=== PATIENT | female | born 1970 | race Caucasian/White ===

== ENCOUNTER 2020-02-10 12:49 | Emergency (ER) | payer BC ==
[~2020-02-10] VITALS: Ht 152.4 cm; Wt 46.8 kg
[2020-02-10 13:03] VITALS: BP 105/71
[2020-02-10] MEDS ORDERED: BENZ-16 PO (13:26)
--- NOTE | 2020-02-11 17:00 | NUR ---
LAB CALLED; PT'S COVID-19 SWAB, SENT TO [facility], CAME BACK POSITIVE. TONG ZHENG AWARE PER LAB.
== END 2020-02-10 13:41 | disposition home or self-care (01) ==
LOC: ER 12:50
DX: Z03.818 Encounter for observation for suspected exposure to other biological agents ruled out (principal); R05 Cough; M79.18 Myalgia, other site; Z88.1 Allergy status to other antibiotic agents; Z79.899 Other long term (current) drug therapy
CPT/HCPCS: 36415; 99283; C9803

== ENCOUNTER 2020-09-06 09:16 | Outpatient (CLI) | payer BC ==
[2020-09-06 10:25] LABS: BASOPHILS # (AUTO) 0.1 X10'3 (0-0.2); BASOPHILS % (AUTO) 1.2 % (0-1); EOSINOPHILS # (AUTO) 0.1 X10'3 (0-0.9); EOSINOPHILS % (AUTO) 2.8 % (0-6); HEMATOCRIT 41.4 % (35.0-45.0); HEMOGLOBIN 13.9 g/dl (12.0-16.0); LYMPHOCYTES % (AUTO) 23.5 % (21-51); MEAN CORPUSCULAR HEMOGLOBIN 30.8 PG (27.0-31.0); MEAN CORPUSCULAR HGB CONC 33.7 g/dL (33.0-36.5); MEAN CORPUSCULAR VOLUME 91.4 FL (78-98); MEAN PLATELET VOLUME 7.1 FL (7.4-10.4); MONOCYTES # (AUTO) 0.5 X10'3 (0-0.9); MONOCYTES % (AUTO) 10.5 % (2-12); NEUTROPHILS # (AUTO) 2.7 X10'3 (1.8-7.7); PLATELET COUNT 297 X10'3 (140-440); RED BLOOD COUNT 4.53 X10'6 (4.20-5.60); RED CELL DISTRIBUTION WIDTH 13.8 % (11.5-14.5); WHITE BLOOD COUNT 4.3 X10'3 (4.5-11.0)
[2020-09-06 10:56] LABS: ALANINE AMINOTRANSFERASE 31 U/L (12-78); ALBUMIN 4.3 G/DL (3.4-5.0); ALBUMIN/GLOBULIN RATIO 1.1 (1.1-1.5); ALKALINE PHOSPHATASE 96 IU/L (46-116); ANION GAP 5 (8-16); ASPARTATE AMINO TRANSFERASE 30 U/L (10-37); BILIRUBIN,TOTAL 0.8 MG/DL (0.1-1.0); BLOOD UREA NITROGEN 16 MG/DL (7-18); BUN/CREATININE RATIO 16.3 (6.6-38.0); CALCIUM 9.4 MG/DL (8.5-10.1); CHLORIDE 94 MMOL/L (99-107); CHOLESTEROL 245 MG/DL (0-200); CREATININE 0.98 MG/DL (0.40-0.90); GLUCOSE 92 MG/DL (70-104); HDL CHOLESTEROL 81 MG/DL (35-60); LDL CHOLESTEROL 148 MG/DL (50-100); SODIUM 139 MMOL/L (135-145); TOTAL CARBON DIOXIDE 39.6 MMOL/L (24-32); TOTAL PROTEIN 8.2 G/DL (6.4-8.2); TRIGLYCERIDES 84 MG/DL (20-135); eGFR 60 ML/MIN
[2020-09-06 10:58] LABS: POTASSIUM 2.2 MMOL/L (3.5-5.1)
== END 2020-09-06 23:59 | disposition home or self-care (01) ==
LOC: LAB 09:16
PROVIDERS: ATTEND Family Medicine
DX: Z00.01 Encounter for general adult medical examination with abnormal findings (principal); E78.00 Pure hypercholesterolemia, unspecified; I10 Essential (primary) hypertension; E03.9 Hypothyroidism, unspecified; R68.89 Other general symptoms and signs; K90.49 Malabsorption due to intolerance, not elsewhere classified; R79.89 Other specified abnormal findings of blood chemistry
CPT/HCPCS: 36415; 80053; 80061; 82306; 84443; 85025

== ENCOUNTER 2020-11-09 12:16 | Outpatient (CLI) | payer BC ==
[2020-11-09 13:04] LABS: BASOPHILS # (AUTO) 0.1 X10'3 (0-0.2); BASOPHILS % (AUTO) 1.5 % (0-1); EOSINOPHILS # (AUTO) 0.1 X10'3 (0-0.9); EOSINOPHILS % (AUTO) 2.5 % (0-6); HEMATOCRIT 38.4 % (35.0-45.0); HEMOGLOBIN 12.7 g/dl (12.0-16.0); LYMPHOCYTES % (AUTO) 27.1 % (21-51); MEAN CORPUSCULAR HEMOGLOBIN 30.4 PG (27.0-31.0); MEAN CORPUSCULAR HGB CONC 33.1 g/dL (33.0-36.5); MEAN CORPUSCULAR VOLUME 91.8 FL (78-98); MONOCYTES # (AUTO) 0.3 X10'3 (0-0.9); MONOCYTES % (AUTO) 8.6 % (2-12); NEUTROPHILS # (AUTO) 2.1 X10'3 (1.8-7.7); NEUTROPHILS % (AUTO) 60.3 % (42-75); PLATELET COUNT 308 X10'3 (140-440); RED BLOOD COUNT 4.18 X10'6 (4.20-5.60); RED CELL DISTRIBUTION WIDTH 13.7 % (11.5-14.5); WHITE BLOOD COUNT 3.5 X10'3 (4.5-11.0)
[2020-11-09 13:13] LABS: ALANINE AMINOTRANSFERASE 35 U/L (12-78); ALBUMIN/GLOBULIN RATIO 1.1 (1.1-1.5); ALKALINE PHOSPHATASE 83 IU/L (46-116); ANION GAP 9 (8-16); ASPARTATE AMINO TRANSFERASE 36 U/L (10-37); BILIRUBIN,TOTAL 0.4 MG/DL (0.1-1.0); BLOOD UREA NITROGEN 9 MG/DL (7-18); BUN/CREATININE RATIO 9.6 (6.6-38.0); CALCIUM 9.2 MG/DL (8.5-10.1); CHLORIDE 95 MMOL/L (99-107); CREATININE 0.94 MG/DL (0.40-0.90); GLUCOSE 104 MG/DL (70-104); POTASSIUM 3.6 MMOL/L (3.5-5.1); SODIUM 139 MMOL/L (135-145); TOTAL CARBON DIOXIDE 35.5 MMOL/L (24-32); TOTAL PROTEIN 7.7 G/DL (6.4-8.2); eGFR 63 ML/MIN
== END 2020-11-09 23:59 | disposition home or self-care (01) ==
LOC: LAB 12:16
PROVIDERS: ATTEND Physician Assistant Surgical
DX: E87.6 Hypokalemia (principal)
CPT/HCPCS: 36415; 80053; 85025

== ENCOUNTER 2021-06-26 15:30 | Emergency (ER) | payer BC ==
[~2021-06-26] VITALS: Ht 165.1 cm; Wt 47.7 kg
[2021-06-26] MEDS ORDERED: magnesium 2GM in 50ml NS 50 ML IV ONE (15:40)
[2021-06-26] MEDS ORDERED: potassium Cl 10 mEq/100mL bag IV ONE ×2 (15:40→16:25)
[2021-06-26] MEDS ORDERED: potassium Cl 20 mEq SR tablet PO ONE (15:40)
[2021-06-26] MEDS ORDERED: normal saline 1000ML IV soln IVB ONE (15:40)
[2021-06-26] MEDS ORDERED: ondansetron/PF 4mg/2ml inj IV ONE (15:40)
[2021-06-26] MEDS ORDERED: famotidine/PF 10 mg/ml inj IV ONE (15:45)
[2021-06-26 16:01] LABS: BASOPHILS % (AUTO) 0.7 % (0-1); EOSINOPHILS # (AUTO) 0.1 X10'3 (0-0.9); EOSINOPHILS % (AUTO) 1.1 % (0-6); HEMATOCRIT 37.7 % (35.0-45.0); HEMOGLOBIN 13.5 g/dl (12.0-16.0); LYMPHOCYTES # (AUTO) 2.1 X10'3 (1.1-4.8); LYMPHOCYTES % (AUTO) 36.6 % (21-51); MEAN CORPUSCULAR HEMOGLOBIN 32.1 PG (27.0-31.0); MEAN CORPUSCULAR HGB CONC 35.8 g/dL (33.0-36.5); MEAN CORPUSCULAR VOLUME 89.7 FL (78-98); MEAN PLATELET VOLUME 7.2 FL (7.4-10.4); MONOCYTES # (AUTO) 0.5 X10'3 (0-0.9); MONOCYTES % (AUTO) 9.2 % (2-12); NEUTROPHILS % (AUTO) 52.4 % (42-75); PLATELET COUNT 328 X10'3 (140-440); RED BLOOD COUNT 4.21 X10'6 (4.20-5.60); RED CELL DISTRIBUTION WIDTH 12.9 % (11.5-14.5); WHITE BLOOD COUNT 5.7 X10'3 (4.5-11.0)
[2021-06-26 16:05] LABS: ALANINE AMINOTRANSFERASE 41 U/L (12-78); ALBUMIN 4.1 G/DL (3.4-5.0); ALBUMIN/GLOBULIN RATIO 1.1 (1.1-1.5); ALKALINE PHOSPHATASE 96 IU/L (46-116); ANION GAP 18 (8-16); ASPARTATE AMINO TRANSFERASE 35 U/L (10-37); BILIRUBIN,TOTAL 0.3 MG/DL (0.1-1.0); BLOOD UREA NITROGEN 11 MG/DL (7-18); BUN/CREATININE RATIO 9.1 (6.6-38.0); CHLORIDE 87 MMOL/L (99-107); CREATININE 1.21 MG/DL (0.40-0.90); GLUCOSE 182 MG/DL (70-104); SODIUM 133 MMOL/L (135-145); TOTAL CARBON DIOXIDE 27.7 MMOL/L (24-32); TOTAL PROTEIN 7.8 G/DL (6.4-8.2); eGFR 47 ML/MIN
[2021-06-26 16:27] VITALS: BP 113/63
[2021-06-26] MEDS ORDERED: ONDA4TAB6 PO (17:15)
== END 2021-06-26 19:13 | disposition home or self-care (01) ==
LOC: ER 15:30
DX: E86.0 Dehydration (principal); R11.2 Nausea with vomiting, unspecified; E87.6 Hypokalemia; R19.7 Diarrhea, unspecified; Z88.1 Allergy status to other antibiotic agents; Z88.8 Allergy status to other drugs, medicaments and biological substances; Z79.899 Other long term (current) drug therapy
CPT/HCPCS: 36415; 80053; 85025; 93005; 96361; 96365; 96366; 96368; 96375; 99284; J2405; J3475; J3480; J3490; J7030

== ENCOUNTER 2021-08-01 05:42 | Day surgery (SDC) | payer BC ==
[2021-07-30 10:35] LABS: CLARITY,URINE CLOUDY (Clear); COLOR,URINE YELLOW (Yellow); GLUCOSE, URINE NEGATIVE (Neg); KETONES,URINE 15 mg/dl (Neg); LEUKOCYTE ESTERASE ,URINE NEGATIVE (Neg); NITRITES, URINE NEGATIVE (Neg); OCCULT BLOOD,URINE NEGATIVE (Neg); PH,URINE 8.5 (4.8-8.0); PROTEIN,URINE TRACE mg/dl (Neg); UROBILINOGEN,URINE 0.2 E.U/dL (0.2-1.0)
[2021-07-30 10:37] LABS: UA COLLECTION TYPE CLN CATCH MIDSTREAM
[2021-07-30 10:43] LABS: BASOPHILS # (AUTO) 0.1 X10'3 (0-0.2); BASOPHILS % (AUTO) 1.2 % (0-1); EOSINOPHILS # (AUTO) 0.1 X10'3 (0-0.9); EOSINOPHILS % (AUTO) 2.5 % (0-6); LYMPHOCYTES # (AUTO) 1.1 X10'3 (1.1-4.8); LYMPHOCYTES % (AUTO) 23.8 % (21-51); MEAN CORPUSCULAR HEMOGLOBIN 32.5 PG (27.0-31.0); MEAN CORPUSCULAR HGB CONC 35.7 g/dL (33.0-36.5); MEAN CORPUSCULAR VOLUME 90.9 FL (78-98); MEAN PLATELET VOLUME 7.5 FL (7.4-10.4); MONOCYTES # (AUTO) 0.3 X10'3 (0-0.9); MONOCYTES % (AUTO) 7.2 % (2-12); NEUTROPHILS # (AUTO) 2.9 X10'3 (1.8-7.7); NEUTROPHILS % (AUTO) 65.3 % (42-75); PRE OP HEMATOCRIT 38.2 % (35.0-45.0); PRE OP HEMOGLOBIN 13.7 g/dL (12.0-16.0); PRE OP PLATELET COUNT 321 X10'3 (140-440); RED BLOOD COUNT 4.21 X10'6 (4.20-5.60); RED CELL DISTRIBUTION WIDTH 13.3 % (11.5-14.5)
[2021-07-30 10:44] LABS: AMORPHOUS PHOSPHATES 3+; HYALINE CASTS 0-3 /LPF (NEGATIVE); MUCUS STRANDS MODERATE /LPF (Neg)
[2021-07-30 10:45] LABS: BACTERIA,URINE FEW /HPF (Neg); RBC,URINE NONE SEEN /HPF (0-2); SQUAMOUS EPITHELIAL CELL,UR FEW /LPF (FEW); WBC,URINE 0-4 /HPF (0-4)
[2021-07-30 10:59] LABS: ALBUMIN/GLOBULIN RATIO 1.1 (1.1-1.5); ALKALINE PHOSPHATASE 102 IU/L (46-116); BLOOD UREA NITROGEN 17 MG/DL (7-18); BUN/CREATININE RATIO 14.4 (6.6-38.0); CALCIUM 9.5 MG/DL (8.5-10.1); CHLORIDE 100 MMOL/L (99-107); CREATININE 1.18 MG/DL (0.40-0.90); PRE OP ALT 32 U/L (30-65); PRE OP ANION GAP 7 (8-16); PRE OP AST 31 U/L (10-37); PRE OP BILIRUB, TOTAL 0.6 MG/DL (0.0-1.0); PRE OP GLUCOSE 107 MG/DL (70-104); PRE OP POTASSIUM 3.5 MMOL/L (3.4-5.1); PRE OP SODIUM 139 MMOL/L (135-145); TOTAL CARBON DIOXIDE 32.3 MMOL/L (24-32); TOTAL PROTEIN 7.8 G/DL (6.4-8.2); eGFR 48 ML/MIN
[2021-08-01] VITALS (20 sets, daily range): BP systolic 90–118; BP diastolic 43–75
[~2021-08-01] VITALS: Ht 152.4 cm; Wt 51.8 kg
[~2021-08-01 05:42] MED LIST: CELE-193 PO; IBUP-1984 PO; LIDOcaine 1% (10mg/ml) 2ml vial ONE; MAGN100T6 PO; PROG100C11 PO; [UNRECOGNIZED DRUG - OTHER] INJ; cefazolin/dext.iso 2gm/50ml IV ONE; famotidine 20mg tablet PO ONE; scopolamine 1mg/72 hr patch TD SCH
[2021-08-01] MEDS: ringers solution, lacted 1,000 ML IV SCH ×2 (06:05→09:19)
[2021-08-01] MEDS ORDERED: BUPIVAcaine/PF 2.5 mg/ml (0.25%) 30ml vial ONE (07:04)
[2021-08-01] MEDS ORDERED: sevoflurane 250ml liquid IH ONE (07:25)
[2021-08-01] MEDS ORDERED: acetaminophen 1000 MG/100ml vial IV ONE (07:25)
[2021-08-01] MEDS ORDERED: aprepitant 40mg capsule PO ONE (07:27)
[2021-08-01] MEDS ORDERED: fentaNYL/PF 50MCG/1 ML 2ML syringe ONE ×2 (07:36→08:56)
[2021-08-01] MEDS ORDERED: midazolam 1 mg/ML 2ml injection ONE (07:37)
[2021-08-01] MEDS ORDERED: propofol inj 20 ML IV ONE (07:38)
[2021-08-01] MEDS ORDERED: LIDOcaine 2% (20mg/ml) 5ml vial ONE (07:38)
[2021-08-01] MEDS ORDERED: ondansetron/PF 4mg/2ml inj ONE ×2 (07:48→08:29)
[2021-08-01] MEDS ORDERED: rocuronium 10mg/ml inj IV ONE (07:48)
[2021-08-01] MEDS ORDERED: dexamethasone sod phosphate 4mg/ml inj. ONE (07:48)
[2021-08-01] MEDS ORDERED: ringers solution, lacted 1,000 ML IV SCH (08:10)
[2021-08-01] MEDS ORDERED: proCHLORperazine 10 MG/2 ml inj IV PRN (08:10)
[2021-08-01] MEDS ORDERED: meperidine/PF 25mg/ml syringe IV PRN ×3 (08:10)
[2021-08-01] MEDS ORDERED: morphine 4 MG/ML inj SYRINge IV PRN (08:10)
[2021-08-01] MEDS ORDERED: ondansetron/PF 4mg/2ml inj IV PRN (08:10)
[2021-08-01] MEDS ORDERED: morphine 2 MG/ML inj. syringe IV PRN (08:10)
[2021-08-01] MEDS ORDERED: ketorolac trometh. 30mg/ml inj. ONE (08:49)
--- NOTE | 2021-08-01 08:53 | NUR ---
Received from OR via [facility], accompanied by Anesthesiologist VICKI and report given by Anesthesiolgist. PT. ARRIVED WITH O2 AT 10 L. MASK. VSS. PAIN PRESENT. MEDICATED PER VICKI WITH SOME RESULT. 3 INCISIONN SITES UPPER, LEFT AND LOWER ABD. LARGE BANDAIDS CDI. LR INFUSING IN L. WRIST 20 G. AT 100 ML/HR, CDI. . EXTREMITIES WARM, PULSES PALPABLE, INTACT SENSATIONS. PT. REPOSITIONED FOR COMFORT. SCOPE PATCH IN PLACE L. EAR. Addendum: 08/01/21 at 0917 by Arlette Kamara RN Amended: Links added.
[2021-08-01] MEDS ORDERED: fentaNYL/PF 50MCG/1 ML 2ML syringe IV ONE ×2 (09:35→10:00)
[2021-08-01] MEDS ORDERED: HYDROcodone/acetaminophen 10/325mg tab PO ONE (10:00)
--- NOTE | 2021-08-01 12:13 | NUR ---
ALL DC CRITERIA MET. PT. DC TO PRIVATE VEHICLE VIA WC. PT. ABLE TO TOLERATE FLUIDS AND CRACKERS. PRN PAIN MED GIVEN PRIOR TO DC. VSS. PAIN MANAGEABLE. ANGELA HUGHES CALLED TO PT. PHARMACY PER VICKI. PT. ABLE TO ASSIST WITH DRESSING AND AMBULATE. IV DC. DRESSINGS ON ABDOMEN CDI. LEFT WITH ALL BELONGINGS. Addendum: 08/01/21 at 1247 by Arlette Kamara RN Amended: Links added.
== END 2021-08-01 12:13 | disposition home or self-care (01) ==
LOC: PAS 05:42
PROVIDERS: ATTEND Surgery
DX: K43.2 Incisional hernia without obstruction or gangrene (principal); Z20.822 Contact with and (suspected) exposure to COVID-19; Z90.49 Acquired absence of other specified parts of digestive tract; Z98.51 Tubal ligation status; Z98.890 Other specified postprocedural states; Z72.89 Other problems related to lifestyle; Z88.8 Allergy status to other drugs, medicaments and biological substances; Z88.1 Allergy status to other antibiotic agents; Z79.899 Other long term (current) drug therapy
CPT/HCPCS: 36415; 49654; 80053; 81001; 85025; 87635; 93005; C1713; C1781; C9803; J0690; J1100; J1885; J2250; J2405; J2704; J3010; J3490; J7030; J7120; J8501; Z7506; Z7508; Z7512; A4215; A4618; A7000; J0131

== ENCOUNTER 2023-06-10 08:39 | Inpatient (IN) | payer BC, OTHER ==
[~2023-06-10] VITALS: Ht 152.4 cm; Wt 42.0 kg
[~2023-06-10 08:39] MED LIST changes: -LIDOcaine 1% (10mg/ml) 2ml vial ONE; -cefazolin/dext.iso 2gm/50ml IV ONE; -famotidine 20mg tablet PO ONE; -scopolamine 1mg/72 hr patch TD SCH
[2023-06-10] MEDS ORDERED: ondansetron/PF 4mg/2ml inj IV ONE (08:50)
[2023-06-10] MEDS ORDERED: morphine 2 MG/ML inj. syringe IV ONE (08:50)
[2023-06-10] MEDS ORDERED: iohexol 300mg/ml 100ml inj. ONE (08:55)
--- NOTE | 2023-06-10 09:26 | NUR ---
Pt came to ER from short stay with left forearm IV already initiated. IV patent.
[2023-06-10 10:01] LABS: BASOPHILS % (AUTO) 0.7 % (0-1); EOSINOPHILS # (AUTO) 0.1 X10'3 (0-0.9); EOSINOPHILS % (AUTO) 1.3 % (0-6); HEMATOCRIT 40.8 % (35.0-45.0); LYMPHOCYTES # (AUTO) 1.5 X10'3 (1.1-4.8); LYMPHOCYTES % (AUTO) 31.6 % (21-51); MEAN CORPUSCULAR HEMOGLOBIN 31.8 PG (27.0-31.0); MEAN CORPUSCULAR HGB CONC 34.3 g/dL (33.0-36.5); MEAN CORPUSCULAR VOLUME 92.6 FL (78-98); MEAN PLATELET VOLUME 7.9 FL (7.4-10.4); MONOCYTES # (AUTO) 0.5 X10'3 (0-0.9); MONOCYTES % (AUTO) 11.3 % (2-12); NEUTROPHILS # (AUTO) 2.7 X10'3 (1.8-7.7); NEUTROPHILS % (AUTO) 55.1 % (42-75); PLATELET COUNT 254 X10'3 (140-440); WHITE BLOOD COUNT 4.8 X10'3 (4.5-11.0)
[2023-06-10 10:14] LABS: ALANINE AMINOTRANSFERASE 26 U/L (12-78); ALBUMIN 4.1 G/DL (3.4-5.0); ALBUMIN/GLOBULIN RATIO 1.3 (1.1-1.5); ALKALINE PHOSPHATASE 63 IU/L (46-116); ANION GAP 7 (8-16); ASPARTATE AMINO TRANSFERASE 41 U/L (10-37); BILIRUBIN,TOTAL 0.7 MG/DL (0.1-1.0); BLOOD UREA NITROGEN 14 MG/DL (7-18); BUN/CREATININE RATIO 14.9 (10.0-20.0); CALCIUM 9.2 MG/DL (8.5-10.1); CHLORIDE 92 MMOL/L (99-107); CREATINE KINASE 199 U/L (26-192); CREATININE 0.94 MG/DL (0.40-0.90); GLUCOSE 106 MG/DL (70-104); LIPASE 32 U/L (16-77); PRO BRAIN NATRIURETIC PEPTIDE < 30 PG/ML (0-125); SODIUM 136 MMOL/L (135-145); TOTAL CARBON DIOXIDE 37.1 MMOL/L (24-32); TOTAL PROTEIN 7.2 G/DL (6.4-8.2); eCRCL 48 ML/MIN; eGFR 63 ML/MIN
[2023-06-10] MEDS ORDERED: ringers solution, lacted 1,000 ML IV ONE (10:20)
[2023-06-10] MEDS ORDERED: magnesium citrate 296ml oral solution PO ONE ×2 (10:20→10:35)
[2023-06-10] MEDS ORDERED: HYDROcodone/acetaminophen 5mg/325mg tablet PO PRN (10:35)
[2023-06-10] MEDS ORDERED: mag hydrox/Alum hydrox/simeth 30ml oral suspension PO PRN (10:35)
[2023-06-10] MEDS ORDERED: magnesium 4gm in 100ml NS 100 ML IV PRN (10:35)
[2023-06-10] MEDS ORDERED: magnesium 2GM in 50ml NS 50 ML IV PRN (10:35)
[2023-06-10] MEDS ORDERED: potassium Cl 20 mEq SR tablet PO PRN ×2 (10:35)
[2023-06-10] MEDS ORDERED: acetaminophen 325mg tablet PO PRN (10:35)
[2023-06-10] MEDS ORDERED: HYDROcodone/acetaminophen 10/325mg tab PO PRN (10:35)
[2023-06-10] MEDS ORDERED: potassium Cl 40MEQ/1/2NS 520ml 520 ML IV PRN (10:35)
[2023-06-10] MEDS ORDERED: ondansetron/PF 4mg/2ml inj IV PRN (10:35)
[2023-06-10] MEDS ORDERED: magnesium hydroxide 30ml (MOM) UD suspension PO PRN (10:35)
[2023-06-10] MEDS ORDERED: magnesium Cl slow-release 64mg tablet PO PRN (10:35)
[2023-06-10] MEDS: POTASSIUM BICARB 20meq eff tab 20 MEQ TABLET.EFF PO SCH ×7 (10:45→23:00)
[2023-06-10] MEDS: potassium Cl 20mEq in NS 1,000 ML IV SCH ×2 (11:24→20:35)
[2023-06-10 12:49] LABS: BILIRUBIN,URINE NEGATIVE (Neg); CLARITY,URINE SLIGHTLY CLOUDY (Clear); COLOR,URINE STRAW (Yellow); GLUCOSE, URINE NEGATIVE (Neg); KETONES,URINE NEGATIVE (Neg); LEUKOCYTE ESTERASE ,URINE NEGATIVE (Neg); NITRITES, URINE NEGATIVE (Neg); OCCULT BLOOD,URINE NEGATIVE (Neg); PH,URINE 8.5 (4.8-8.0); PROTEIN,URINE NEGATIVE (Neg); UROBILINOGEN,URINE 0.2 E.U/dL (0.2-1.0)
[2023-06-10 12:56] LABS: SQUAMOUS EPITHELIAL CELL,UR MANY /LPF (FEW); UA COLLECTION TYPE CLN CATCH MIDSTREAM
[2023-06-10 12:57] LABS: BACTERIA,URINE 2+ /HPF (Neg); RBC,URINE 0-2 /HPF (0-2); WBC,URINE 0-4 /HPF (0-4)
[2023-06-10 13:00] VITALS: BP 112/62; PULSE 59; RESP 16; O2SAT 99
[2023-06-10 13:28] LABS: MAGNESIUM 1.9 MG/DL (1.5-2.4)
[2023-06-10 13:42] LABS: POTASSIUM 2.1 MMOL/L (3.5-5.1)
[2023-06-10 18:00] VITALS: BP 105/65; PULSE 59; RESP 16; TEMP 97.8; O2SAT 100
[2023-06-10] MEDS ORDERED: NO HOME MEDS (19:00)
[2023-06-10] MEDS: docusate sod 100mg capsule PO SCH ×2 (19:53→20:00)
[2023-06-10] MEDS ORDERED: K and/or MAG REPLACEMENT MC SCH (20:00)
[2023-06-10] MEDS ORDERED: enoxaparin 40mg/0.4ml syringe SQ SCH (20:00)
[2023-06-10 22:00] VITALS: BP 93/49; PULSE 72; RESP 16; TEMP 98.4; O2SAT 98
[2023-06-11] MEDS: POTASSIUM BICARB 20meq eff tab 20 MEQ TABLET.EFF PO SCH ×5 (00:26→09:02)
--- NOTE | 2023-06-11 05:28 | NUR ---
SHOE LACER documentation: I have reviewed and agree with all interventions, assessments performed and documented by Meet.
[2023-06-11 06:00] VITALS: BP 96/61; PULSE 57; RESP 16; TEMP 97.9; O2SAT 98
--- NOTE | 2023-06-11 06:19 | NUR ---
Report to Sharri GUARDADO
[2023-06-11 06:56] LABS: BASOPHILS % (AUTO) 0.8 % (0-1); EOSINOPHILS # (AUTO) 0.1 X10'3 (0-0.9); EOSINOPHILS % (AUTO) 1.2 % (0-6); HEMATOCRIT 36.9 % (35.0-45.0); HEMOGLOBIN 12.7 g/dl (12.0-16.0); LYMPHOCYTES # (AUTO) 1.4 X10'3 (1.1-4.8); LYMPHOCYTES % (AUTO) 24.2 % (21-51); MEAN CORPUSCULAR HEMOGLOBIN 32.1 PG (27.0-31.0); MEAN CORPUSCULAR HGB CONC 34.3 g/dL (33.0-36.5); MEAN CORPUSCULAR VOLUME 93.5 FL (78-98); MEAN PLATELET VOLUME 7.3 FL (7.4-10.4); MONOCYTES # (AUTO) 0.4 X10'3 (0-0.9); MONOCYTES % (AUTO) 6.7 % (2-12); NEUTROPHILS # (AUTO) 3.8 X10'3 (1.8-7.7); NEUTROPHILS % (AUTO) 67.1 % (42-75); PLATELET COUNT 234 X10'3 (140-440); RED BLOOD COUNT 3.94 X10'6 (4.20-5.60); RED CELL DISTRIBUTION WIDTH 12.9 % (11.5-14.5); WHITE BLOOD COUNT 5.6 X10'3 (4.5-11.0)
[2023-06-11 07:06] LABS: ALANINE AMINOTRANSFERASE 22 U/L (12-78); ALBUMIN 3.2 G/DL (3.4-5.0); ALBUMIN/GLOBULIN RATIO 1.2 (1.1-1.5); ALKALINE PHOSPHATASE 52 IU/L (46-116); ANION GAP 3 (8-16); ASPARTATE AMINO TRANSFERASE 32 U/L (10-37); BILIRUBIN,TOTAL 0.4 MG/DL (0.1-1.0); BLOOD UREA NITROGEN 5 MG/DL (7-18); BUN/CREATININE RATIO 7.1 (10.0-20.0); CALCIUM 8.4 MG/DL (8.5-10.1); CHLORIDE 103 MMOL/L (99-107); GLUCOSE 90 MG/DL (70-104); MAGNESIUM 2.4 MG/DL (1.5-2.4); POTASSIUM 3.8 MMOL/L (3.5-5.1); SODIUM 139 MMOL/L (135-145); TOTAL CARBON DIOXIDE 33.4 MMOL/L (24-32); TOTAL PROTEIN 5.8 G/DL (6.4-8.2); eCRCL 64 ML/MIN; eGFR 88 ML/MIN
[2023-06-11] MEDS: docusate sod 100mg capsule PO SCH ×2 (09:00)
[2023-06-11 09:45] VITALS: RESP 14; O2SAT 98
--- NOTE | 2023-06-11 11:59 | NUR ---
PAGER ID: [phone] MESSAGE: Sharri goodson/neuro [id number] [place]- would like to be discharged
[2023-06-11] MEDS ORDERED: POTA-207 PO (14:00)
== END 2023-06-11 15:11 | disposition home or self-care (01) | DRG 641 ==
LOC: ER 08:39 → ED HOLD 10:37 → ORTHO 4S 13:09
PROVIDERS: ADMIT Internal Medicine; ATTEND Internal Medicine
PROC: BW211ZZ Computerized Tomography (CT Scan) of Abdomen and Pelvis using Low Osmolar Contrast (ICD-10-PCS; principal; 2023-06-10)
DX: E87.6 Hypokalemia (principal); E86.0 Dehydration
CPT/HCPCS: 36415; 71045; 74177; 80053; 81001; 82550; 82948; 83690; 83735; 83880; 84132; 84484; 85025; 93005; 99285; G0378; J2405; J3480; J3490; J7030; J7120; Q9967

== ENCOUNTER 2024-06-17 09:46 | Day surgery (SDC) | payer BC ==
[2024-06-08 11:51] LABS: BILIRUBIN,URINE NEGATIVE (Neg); CLARITY,URINE CLOUDY (Clear); COLOR,URINE YELLOW (Yellow); GLUCOSE, URINE NEGATIVE (Neg); KETONES,URINE NEGATIVE (Neg); LEUKOCYTE ESTERASE ,URINE NEGATIVE (Neg); NITRITES, URINE NEGATIVE (Neg); OCCULT BLOOD,URINE NEGATIVE (Neg); PH,URINE 8.5 (4.8-8.0); PROTEIN,URINE 30 mg/dl (Neg); UROBILINOGEN,URINE 0.2 E.U/dL (0.2-1.0)
[2024-06-08 11:52] LABS: BASOPHILS # (AUTO) 0.1 X10'3 (0-0.2); BASOPHILS % (AUTO) 1.3 % (0-1); EOSINOPHILS # (AUTO) 0.1 X10'3 (0-0.9); EOSINOPHILS % (AUTO) 1.7 % (0-6); LYMPHOCYTES # (AUTO) 1.2 X10'3 (1.1-4.8); MEAN CORPUSCULAR HEMOGLOBIN 31.8 PG (27.0-31.0); MEAN CORPUSCULAR HGB CONC 33.5 g/dL (33.0-36.5); MEAN CORPUSCULAR VOLUME 94.9 FL (78-98); MONOCYTES # (AUTO) 0.4 X10'3 (0-0.9); MONOCYTES % (AUTO) 7.9 % (2-12); NEUTROPHILS # (AUTO) 2.8 X10'3 (1.8-7.7); NEUTROPHILS % (AUTO) 62.1 % (42-75); PRE OP HEMATOCRIT 40.1 % (35.0-45.0); PRE OP HEMOGLOBIN 13.5 g/dL (12.0-16.0); PRE OP PLATELET COUNT 269 X10'3 (140-440); PRE OP WHITE BLOOD COUNT 4.6 10'3 (4.8-10.8); RED BLOOD COUNT 4.23 X10'6 (4.20-5.60); RED CELL DISTRIBUTION WIDTH 13.1 % (11.5-14.5)
[2024-06-08 11:53] LABS: UA COLLECTION TYPE CLN CATCH MIDSTREAM
[2024-06-08 11:58] LABS: AMORPHOUS PHOSPHATES 4+; MUCUS STRANDS FEW /LPF (Neg); SQUAMOUS EPITHELIAL CELL,UR MANY /LPF (FEW)
[2024-06-08 11:59] LABS: BACTERIA,URINE NONE SEEN /HPF (Neg); RBC,URINE 0-2 /HPF (0-2); WBC,URINE 0-4 /HPF (0-4)
[2024-06-08 12:05] LABS: ALBUMIN 3.7 G/DL (3.4-5.0); ALBUMIN/GLOBULIN RATIO 1.1 (1.1-1.5); ALKALINE PHOSPHATASE 71 IU/L (46-116); BLOOD UREA NITROGEN 11 MG/DL (7-18); BUN/CREATININE RATIO 10.4 (10.0-20.0); CALCIUM 8.7 MG/DL (8.5-10.1); CHLORIDE 103 MMOL/L (99-107); CREATININE 1.06 MG/DL (0.40-0.90); PRE OP ALT 26 U/L (30-65); PRE OP ANION GAP 2 (8-16); PRE OP AST 29 U/L (10-37); PRE OP BILIRUB, TOTAL 0.4 MG/DL (0.0-1.0); PRE OP GLUCOSE 102 MG/DL (70-104); PRE OP SODIUM 140 MMOL/L (135-145); TOTAL CARBON DIOXIDE 34.8 MMOL/L (24-32); eGFR 54 ML/MIN
[~2024-06-17] VITALS: Ht 152.4 cm; Wt 46.9 kg
[2024-06-17] MEDS: ceFAZolin 2gm in dextrose, iso 50 ML IV ONE (05:30)
[~2024-06-17 09:46] MED LIST changes: -CELE-193 PO; +ESTROGEN SUBD; -IBUP-1984 PO; -MAGN100T6 PO; +TESTOSTERONE PELLET SUBD; -[UNRECOGNIZED DRUG - OTHER] INJ
[2024-06-17 10:00] VITALS: BP 101/64; PULSE 52; RESP 16; TEMP 98.1; O2SAT 98
[2024-06-17] MEDS: aprepitant 40mg capsule PO ONE (10:24)
[2024-06-17] MEDS: ringers solution, lacted 1,000 ML IV SCH (10:24)
[2024-06-17] MEDS: famotidine 20mg tablet PO ONE (10:24)
[2024-06-17] MEDS ORDERED: ringers solution, lacted 1,000 ML IV SCH (12:05)
[2024-06-17] MEDS ORDERED: morphine 4 MG/ML inj SYRINge IV PRN (12:05)
[2024-06-17] MEDS ORDERED: morphine 2 MG/ML inj. syringe IV PRN (12:05)
[2024-06-17] MEDS ORDERED: meperidine/PF 25mg/ml syringe IV PRN ×3 (12:05)
[2024-06-17] MEDS ORDERED: labetalol 20mg/4ml (5mg/ml) syringe IV PRN (12:05)
[2024-06-17] MEDS ORDERED: enalaprilat dihydrate 2.5mg/2ml vial IV PRN (12:05)
[2024-06-17] MEDS ORDERED: proCHLORperazine 10 MG/2 ml inj IV PRN (12:05)
[2024-06-17] MEDS ORDERED: ondansetron/PF 4mg/2ml inj IV PRN (12:05)
[2024-06-17] MEDS: scopolamine 1MG/72H patch 1 PATCH PATCH.TD.3 TD SCH (12:29)
[2024-06-17] MEDS ORDERED: BUPIVAcaine 2.5mg/ml inj 50ml vial (contains preservative) ONE (12:33)
[2024-06-17] MEDS ORDERED: midazolam 1 mg/ML 2ml injection ONE (12:47)
[2024-06-17] MEDS ORDERED: fentaNYL /PF 50mcg/ml 5ml ampule ONE (12:47)
[2024-06-17] MEDS ORDERED: LIDOcaine 2% (20mg/ml) 5ml vial ONE (12:48)
[2024-06-17] MEDS ORDERED: propofol inj 0 ML IV ONE (12:48)
[2024-06-17] MEDS ORDERED: propofol inj 20 ML IV ONE (12:48)
[2024-06-17] MEDS ORDERED: rocuronium 10mg/ml inj IV ONE (12:49)
[2024-06-17] MEDS ORDERED: sevoflurane 250ml liquid IH ONE (12:55)
[2024-06-17] MEDS ORDERED: acetaminophen 1,000mg/100ml IV 100 ML IV ONE (13:24)
[2024-06-17] MEDS: BUPIVAcaine 2.5mg/ml inj 50ml vial (contains preservative) IJ ONE (14:47)
[2024-06-17] MEDS ORDERED: sugammadex 200mg/2ml injection IV ONE (14:57)
[2024-06-17 15:15] VITALS: BP 120/74; PULSE 62; RESP 16; O2SAT 100
[2024-06-17 15:20] VITALS: BP 113/71; PULSE 53; RESP 11; O2SAT 100
[2024-06-17 15:30] VITALS: BP 120/71; PULSE 66; RESP 14; O2SAT 97
[2024-06-17 15:40] VITALS: BP 120/74; PULSE 77; RESP 17; O2SAT 97
[2024-06-17 16:00] VITALS: BP 118/72; PULSE 61; RESP 18; O2SAT 100
== END 2024-06-17 16:51 | disposition home or self-care (01) ==
LOC: PAS 09:46
PROVIDERS: ATTEND Surgery
DX: K41.00 Bilateral femoral hernia, with obstruction, without gangrene, not specified as recurrent (principal); Z79.890 Hormone replacement therapy; Z79.899 Other long term (current) drug therapy; Z90.49 Acquired absence of other specified parts of digestive tract; Z98.51 Tubal ligation status; Z98.890 Other specified postprocedural states; Z88.1 Allergy status to other antibiotic agents; Z88.5 Allergy status to narcotic agent; Z88.8 Allergy status to other drugs, medicaments and biological substances
CPT/HCPCS: 36415; 49553; 80053; 81001; 82948; 85025; 93005; C1781; J0131; J0690; J1100; J2003; J2250; J2405; J2704; J3010; J3490; J7030; J7120; J8501; S2900; Z7506; Z7508; Z7512; A4215; A4338; A4618